=== PATIENT | male | born 1960 | race African-American/Black ===

== ENCOUNTER 2016-08-21 13:33 | Emergency (ER) | payer OTHER ==
[~2016-08-21] VITALS: Ht 175.3 cm; Wt 116.0 kg
[2016-08-21] MEDS ORDERED: NASAL SPRAY SIN30 ML BOTH NARES (13:52)
[2016-08-21] MEDS ORDERED: CETAPHIL CLEAN240 ML TP (13:53)
[2016-08-21] MEDS ORDERED: NOVOLIN,HU100 UNITS1 SQ ×2 (13:54→13:56)
[2016-08-21] MEDS ORDERED: NEURONTIN400 MG PO (13:57)
[2016-08-21] MEDS ORDERED: VENTOLIN HFA18 GM IH (13:59)
[2016-08-21] MEDS ORDERED: COLACE100 MG PO (13:59)
[2016-08-21] MEDS ORDERED: MICATIN15 GM TP (14:00)
[2016-08-21] MEDS ORDERED: COZAAR100 MG PO (14:00)
[2016-08-21] MEDS ORDERED: LANTUS 3 M100 UNITS1 SC (14:01)
[2016-08-21 14:11] LABS: HEMATOCRIT 42.6 % (38.0-50.0); MCH 27.2 PG (29.0-34.0); MCHC 33.6 G/DL (30.0-36.0); MCV 81.1 FL (86-99); MEAN PLAT.VOLUME 9.4 uM^3 (9.0-12.4); PLATELET COUNT 455 K/uL (156-360); RBC DIS.WIDTH-CV 13.7 % (11.8-14.6); RBC DIS.WIDTH-SD 39.8 % (39-53); RED BLOOD COUNT 5.25 M/uL (4.00-5.50); WHITE BLOOD COUNT 16.3 K/uL (4.1-10.2)
[2016-08-21 14:19] LABS: CHLORIDE 96 mEq/L (99-109); POTASSIUM 4.8 mEq/L (3.7-5.4); SODIUM 135 mEq/L (136-147)
[2016-08-21 14:21] LABS: GLUCOSE 224 mg/dL (70-99)
[2016-08-21 14:23] LABS: ANION GAP 12 MEQ/L (2-14); TOTAL BILIRUBIN 0.5 mg/dL (0.0-1.0)
[2016-08-21 14:25] LABS: ALKALINE PHOSPHATASE 73 IU/L (3-129); GFR ESTIMATE (CALCULATED) > 59 mL/min/
[2016-08-21 14:26] LABS: ADD MIUA? NO; BILIRUBIN NEGATIVE; BLOOD NEGATIVE; COLOR YELLOW ((YELLOW)); GLUCOSE (STRIP) >=500; KETONES 5; LEUKOCYTES NEGATIVE; NITRITE NEGATIVE; PROTEIN (STRIP) NEGATIVE; SPECIFIC GRAVITY 1.018 (1.000-1.030); UCUL ADDED? NO; UROBILINOGEN 0.2 MG/DL (0.2-1.0)
[2016-08-21 14:26] LABS: UREA NITROGEN (BUN) 15 mg/dL (9-23)
[2016-08-21 14:28] LABS: LIPASE 5 U/L (1.0-51.0)
[2016-08-21 18:04] VITALS: BP 156/105
== END 2016-08-21 18:30 | disposition short-term general hospital (02) ==
LOC: EME 13:33
PROVIDERS: Emergency Medicine
DX: K35.80 Unspecified acute appendicitis (principal); Z87.891 Personal history of nicotine dependence
CPT/HCPCS: 74177; 80053; 81003; 83690; 85027; 99281; 99285; J0692; J2270; J2405; J7030; J7050

== ENCOUNTER 2016-09-09 12:57 | Emergency (ER) | payer OTHER ==
[~2016-09-09] VITALS: Ht 175.3 cm; Wt 95.3 kg
[~2016-09-09 12:57] MED LIST: CETAPHIL CLEAN240 ML TP; COLACE100 MG PO; COZAAR100 MG PO; LANTUS 3 M100 UNITS1 SC; MICATIN15 GM TP; NASAL SPRAY SIN30 ML BOTH NARES; NEURONTIN400 MG PO; NOVOLIN,HU100 UNITS1 SQ; VENTOLIN HFA18 GM IH
[2016-09-09 14:05] LABS: HEMATOCRIT 35.8 % (38.0-50.0); MCH 26.5 PG (29.0-34.0); MCHC 32.4 G/DL (30.0-36.0); MCV 81.9 FL (86-99); MEAN PLAT.VOLUME 9.1 uM^3 (9.0-12.4); RBC DIS.WIDTH-CV 14.3 % (11.8-14.6); RED BLOOD COUNT 4.37 M/uL (4.00-5.50)
[2016-09-09 14:08] LABS: PLATELET COUNT 820 K/uL (156-360); WHITE BLOOD COUNT 7.6 K/uL (4.1-10.2)
[2016-09-09 14:17] LABS: CHLORIDE 100 mEq/L (99-109); POTASSIUM 4.2 mEq/L (3.7-5.4); SODIUM 135 mEq/L (136-147)
[2016-09-09 14:19] LABS: GLUCOSE 109 mg/dL (70-99)
[2016-09-09 14:20] LABS: ANION GAP 9 MEQ/L (2-14)
[2016-09-09 14:21] LABS: TOTAL BILIRUBIN 0.2 mg/dL (0.0-1.0)
[2016-09-09 14:23] LABS: ALKALINE PHOSPHATASE 107 IU/L (3-129); GFR ESTIMATE (CALCULATED) > 59 mL/min/
[2016-09-09 14:24] LABS: DIRECT BILIRUBIN 0.1 mg/dL (0.0-0.3); UREA NITROGEN (BUN) 12 mg/dL (9-23)
[2016-09-09 18:51] VITALS: BP 140/79
== END 2016-09-09 18:51 | disposition short-term general hospital (02) ==
LOC: EME → EDBD 12:57 → EME 12:57
PROVIDERS: Emergency Medicine
DX: K56.69 Other intestinal obstruction (principal); E11.65 Type 2 diabetes mellitus with hyperglycemia; E87.1 Hypo-osmolality and hyponatremia; D64.9 Anemia, unspecified; Z98.890 Other specified postprocedural states; I10 Essential (primary) hypertension; J45.909 Unspecified asthma, uncomplicated; Z79.4 Long term (current) use of insulin; Z87.891 Personal history of nicotine dependence
CPT/HCPCS: 74177; 80048; 80076; 85027; 99281; 99285; J2270; J2405; J7030